=== PATIENT | male | born 1990 | race Caucasian/White ===

== ENCOUNTER 2016-11-12 18:42 | Emergency (ER) | payer BC ==
[~2016-11-12] VITALS: Ht 177.8 cm; Wt 96.1 kg
[2016-11-12 18:50] VITALS: TEMP 36.4; Ht 177.8 cm; Wt 96.1 kg
--- NOTE | 2016-11-12 19:08 | EMERGENCY ROOM VISIT NOTE ---
History Report prepared by [place]: Castillo Lancaster Under the Supervision of: Dr. Kentrell Salazar D.O. First contact with patient: 18:52 Chief Complaint: RECTAL BLEEDING Stated Complaint: ENTIRE STOOL WAS BLOOD History of Present Illness The patient is a 26 year old male who presents to the Emergency Room with complaints of rectal bleeding that occurred today. The patient states that there was a lot of blood in the commode after he went to the bathroom. He did not feel any burning or tearing when he had his bowel movement. He notes that it may have been larger than usual. He has never experienced anything like this before. He denies any nausea, vomiting, abdominal pain, hemorrhoids, or constipation. He does not take any medications everyday. He has not had any surgeries. Source of History: patient Onset: today Position: other (rectume) Symptom Intensity: moderate Quality: other (bleeding) Timing: intermittent Modifying Factors (Worsening): other (bowel movement) Associated Symptoms: No abdominal pain, No diarrhea, No nausea, No vomiting Note: He denies constipation and hemorrhoids. Review of Systems See HPI for pertinent positives & negatives. A total of 10 systems reviewed and were otherwise negative. Past Medical & Surgical Medical Problems: (1) Asthma Family History Hypertension Kidney disease Kidney stones Social History Smoking Status: Current Every Day Smoker (1/2 pack a week) Smokeless Tobacco Use: No Alcohol Use: occasionally Drug Use: none Marital Status: single Occupation Status: employed Current/Historical Medications No Active Prescriptions or Reported Meds Allergies Coded Allergies: No Known Allergies (Unverified , 11/12/16) Physical Exam Vital Signs Date Time Temp Pulse Resp B/P Pulse Ox O2 Delivery O2 Flow Rate FiO2 11/12/16 19:28 73 16 137/88 97 11/12/16 18:50 36.4 99 18 144/87 100 Room Air Physical Exam GENERAL: Patient is awake, alert, and in no acute distress. Patient is resting comfortably and showing no signs of anxiety EYES: The conjunctivae are clear. The pupils are round and reactive. EARS, NOSE, MOUTH AND THROAT: The nose is without any evidence of any deformity. Mucous membranes are moist tongue is midline NECK: The neck is nontender and supple. RESPIRATORY: Normal respiratory effort is noted there is no evidence of wheezing rhonchi or rales CARDIOVASCULAR: Regular rate and rhythm noted there no murmurs rubs or gallops normal S1 normal S2 GASTROINTESTINAL: The abdomen is soft. Bowel sounds are present in all quadrants. Abdomen is nontender. Rectal exam - The patient was placed in the knee-chest position, an anal fissure was noted at 12 o'clock in this position, no active bleeding noted, dried blood noted. MUSCULOSKELETAL/EXTREMITIES: There is no evidence of gross deformity full range of motion is noted in the hips and shoulders SKIN: There is no obvious evidence of any rash. There are no petechiae, pallor or cyanosis noted. NEUROLOGIC: Patient is awake alert and oriented x3. Medical Decision & Procedures ED Course 1851: The patient was evaluated in room C8. A complete history and physical examination were performed. 1909: Upon reevaluation, the patient is resting. I discussed the results and treatment plan with him. He verbalized agreement of the treatment plan. He was discharged home. Medical Decision Differential diagnosis: Etiologies such as diverticulosis, AVM, coagulopathy, colitis, inflammatory bowel disease, malignancy, Henrietta-Francis tear, esophagitis, peptic ulcer disease , variceal bleed, gastritis, epistaxis, fissure, hemorrhoids, as well as others were entertained. Nursing notes reviewed. The patient is a 26-year-old male who presented to the emergency department for an evaluation of rectal bleeding. The patient was found have signs of anal fissure on physical exam. There is no active bleeding noted. The patient's vital signs were stable. I discussed the patient's diagnosis with him. He was encouraged to consider starting a stool softener and follow-up with his primary care physician this week for reevaluation. Otherwise he was encouraged to return to emergency apartment immediately if symptoms change worsen or the need arises. Impression Primary Impression: Anal fissure Scribe Attestation The scribe's documentation has been prepared under my direction and personally reviewed by me in its entirety. I confirm that the note above accurately reflects all work, treatment, procedures, and medical decision making performed by me. Departure Information Dispostion Home / Self-Care Prescriptions No Active Prescriptions or Reported Meds Referrals No Doctor, Assigned (PCP) Forms HOME CARE DOCUMENTATION FORM, IMPORTANT VISIT INFORMATION, WORK / SCHOOL INSTRUCTIONS Patient Instructions Bleeding Rectal, My [employer] Expressions Additional Instructions Drink plenty of clear liquids. I would recommend trying an [id number] stool softener such as Colace. You may experience continued bleeding over the next few days. Follow-up with your family this week for reevaluation but return to the emergency department immediately if symptoms change worsen or the need arises.
[2016-11-12 19:28] VITALS: BP 137/88; PULSE 73; O2SAT 97
== END 2016-11-12 19:28 | disposition home or self-care (01) ==
LOC: C.EDB 18:43 → C.EDC 19:28
DX: K60.2 Anal fissure, unspecified (principal); J45.909 Unspecified asthma, uncomplicated; F17.200 Nicotine dependence, unspecified, uncomplicated; Z82.49 Family history of ischemic heart disease and other diseases of the circulatory system; Z84.1 Family history of disorders of kidney and ureter